=== PATIENT | female | born 1950 | race Two or more races ===

== ENCOUNTER 2021-12-02 23:49 | Emergency (ER) | payer OTHER ==
[~2021-12-02] VITALS: Ht 152.4 cm; Wt 58.5 kg
== END 2021-12-03 | disposition home or self-care (01) ==
LOC: ER 23:49
DX: M94.0 Chondrocostal junction syndrome [Tietze] (principal); J90 Pleural effusion, not elsewhere classified; Z85.9 Personal history of malignant neoplasm, unspecified